=== PATIENT | male | born 1985 | race Caucasian/White ===

== ENCOUNTER 2017-02-16 07:36 | Emergency (ER) | payer MEDICAID, OTHER ==
[~2017-02-16] VITALS: Ht 170.2 cm; Wt 125.0 kg
[~2017-02-16 07:36] MED LIST: BACTDS PO; CLOT24CR4 TOP; FLUC150T41 PO; IBUP800T25 PO; TRAM50TA2 PO
[2017-02-16 07:39] VITALS: Ht 170.2 cm; Wt 125.0 kg
[2017-02-16] MEDS ORDERED: ONDANSETRON 4 MG INJ IV STA (07:48)
[2017-02-16] MEDS ORDERED: HYDROmorphONE 1 MG/ML SYG IV STA (07:48)
[2017-02-16] MEDS ORDERED: SOD CHLORIDE 0.9% 1,000 ML IV STA (07:48)
[2017-02-16] MEDS ORDERED: KETOROLAC 60 MG INJ IM STA (07:58)
[2017-02-16 08:11] LABS: BASOPHIL # 0.1 10^3/ul (0.0-0.1); BASOPHILS % 0.6 % (0.0-2.0); EOSINOPHILS # 0.2 10^3/ul (0.0-0.5); EOSINOPHILS % 1.8 % (0.0-7.0); HEMATOCRIT 43.6 % (42.0-52.0); HEMOGLOBIN 15.7 g/dl (14.0-18.0); LYMPHOCYTES # 4.1 10^3/ul (0.8-2.9); MEAN CORPUSCULAR VOLUME 83.2 fl (82.0-101.0); MEAN PLATELET VOLUME 9.8 fl (7.4-10.4); MONOCYTES % 9.2 % (0.0-11.0); NEUTROPHIL # 5.4 10^3/ul (1.6-7.5); NEUTROPHILS % 50.1 % (39.0-77.0); PLATELET COUNT 273 10^3/UL (140-415); RED BLOOD COUNT 5.24 10^6/ul (4.70-6.10); RED CELL DISTRIBUTION WIDTH 12.4 % (11.5-14.5); WHITE BLOOD COUNT 10.9 10^3/ul (4.8-10.8)
[2017-02-16 08:36] LABS: ALBUMIN 4.4 g/dl (3.3-4.9); ALBUMIN/GLOBULIN RATIO 1.1; BILIRUBIN,INDIRECT 0.6 mg/dl (0-1.1); BILIRUBIN,TOTAL 0.6 mg/dl (0.2-1.3); CALCIUM 9.6 mg/dl (8.4-10.2); CREATININE 0.84 mg/dl (0.61-1.24); POTASSIUM 4.1 mmol/L (3.5-5.1); TOTAL PROTEIN 8.4 g/dl (6.1-8.1)
--- NOTE | 2017-02-16 08:50 | RADRPT ---
PROCEDURE: CT Abdomen and Pelvis without intravenous contrast. CLINICAL INDICATION: Abdominal pain . TECHNIQUE: CT scan of the abdomen and pelvis without intravenous contrast was performed on a multi -slice CT scanner. Coronal and sagittal reformatted images were obtained from the axial source image s. Images were reviewed on a high-resolution PACS workstation. Total DLP = 1404 mGy-cm. CTDIvol = 21.5 mGy. One or more of the following dose reduction techniques were used: Automated exposure control. Adjustment of the mA and/or kV according to patient size. Use of iterative reconstruction technique. COMPARISON: None. FINDINGS: CT abdomen and pelvis: The lung bases are clear. The heart size is normal in size. The liver is normal in size and diffus tanya fatty in density without focal mass or intrahepatic biliary dilatation. The spleen is normal in size and homogeneous in density. The pancreas as visualized is normal. The gallbladder shows no evidence of stones or distension . The adrenal glands are normal. The kidneys are symmetric in si ze. 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 There is a 2 mm stone in the left proximal ureter to the lower rc e moiety with mild left hydronephrosis. The right kidney appears unremarkable.. The stomach is partially collapsed, but is grossly unremarkable. The small bowels are unremarkable. The colon and rectum are normal. There is no evidence of appendicitis or diverticulitis. The pelvi c organs are normal. The bladder is normal. There is no abdominal or pelvic adenopathy, free fluid, free air, mass or mesenteric inflammation. The aorta is normal in caliber and course. The osseous structures are intact. No osteolytic or osteo blastic lesions are identified. The soft tissues are within normal limits. Lack of IV and oral con trast limits sensitivity of exam. IMPRESSION: 1. 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 2. Severe hepatic steatosis. RPTAT: HJPL .Lobito Saavedra MD, Date Time Electronically viewed and signed by .Lobito Saavedra MD, on 02/16/2017 08:49 .L/
[2017-02-16 09:39] LABS: ADD UMIC YES; UR ASCORBIC ACID NEGATIVE (NEGATIVE); UR BILIRUBIN (Dip) NEGATIVE (NEGATIVE); UR BLOOD (Dip) 3+ mg/dL (NEGATIVE); UR CLARITY CLEAR (CLEAR); UR COLOR YELLOW (YELLOW); UR GLUCOSE (Dip) NEGATIVE (NEGATIVE); UR KETONES (Dip) TRACE mg/dL (NEGATIVE); UR LEUKOCYTE ESTERASE (Dip) NEGATIVE Leu/ul (NEGATIVE); UR MUCUS FEW /HPF (NONE SEEN); UR NITRITE (Dip) NEGATIVE (NEGATIVE); UR RBC 56 /HPF (0-5); UR SPECIFIC GRAVITY (Dip) 1.015 (1.003-1.030); UR TOTAL PROTEIN (Dip) NEGATIVE (NEGATIVE); UR UROBILINOGEN (Dip) NEGATIVE (NEGATIVE)
[2017-02-16] MEDS ORDERED: HYDR-906 PO (09:44)
[2017-02-16] MEDS ORDERED: TAMS-14 PO (09:44)
--- NOTE | 2017-02-16 10:13 | ERD ---
ER Documentation Chief Complaint Date/Time DATE: 02/16/17 TIME: 10:07 Chief Complaint HPI 31-year-old male complaining of left flank pain 1 day. Last bowel movement was earlier today and was normal. Denies taking medication for pain control. Denies vomiting. Has never had pain like this before. States it is a cramping sharp pain in the left flank. Denies chest pain or shortness of breath. Medical problems: Hernia. ROS All systems reviewed and are negative except as per history of present illness. Medications Home Meds Active Scripts Tamsulosin Hcl* (Flomax*) 0.4 Mg Cap.er.24h, 0.4 MG PO BID, #30 CAP Prov:BLAS GUAMAN PA-C 02/16/17 Hydrocodone/Acetaminophen ([place] 5-325 Tablet) 1 Each Tablet, 1 TAB PO Q6H Y for PAIN, #7 TAB Prov:BLAS GUAMAN PA-C 02/16/17 Fluconazole* (Fluconazole*) 150 Mg Tablet, 150 MG PO DAILY for 1 Day, TAB Prov:JACKY JI MD 06/15/15 Tramadol HCl (Tramadol HCl) 50 Mg Tablet, 50 MG PO Q4 Y for PAIN, #20 TAB Prov:JACKY JI MD 06/15/15 Clotrimazole* (Lotrimin* AF) 1% - 24 Gm Cream.gm., 1 APPLIC TOP BID for 14 Days , TUB Prov:JACKY JI MD 06/15/15 Sulfamethoxazole-Trimethoprim* (Bactrim* DS) 800-160 Mg Tab, 1 TAB PO BID for 7 Days, TAB Prov:JACKY JI MD 06/15/15 Ibuprofen* (Motrin*) 800 Mg Tab, 800 MG PO Q6H Y for PAIN AND OR ELEVATED TEMP, #30 TAB Prov:ROMEO VELARDE NP 05/21/15 Allergies Allergies: Coded Allergies: No Known Allergy (Unverified , 05/21/15) PMhx/Soc History of Surgery: No Anesthesia Reaction: No Hx Neurological Disorder: No Hx Respiratory Disorders: No Hx Cardiac Disorders: No Hx Psychiatric Problems: No Hx Miscellaneous Medical Probl: No Hx Alcohol Use: No Hx Substance Use: No Hx Tobacco Use: No Physical Exam Vitals Vital Signs Date Time Temp Pulse Resp B/P Pulse Ox O2 Delivery O2 Flow Rate FiO2 02/16/17 07:39 98.6 72 20 125/86 98 Physical Exam GENERAL: The patient is well-appearing, well-nourished, in no acute distress CHEST: Clear to auscultation bilaterally. There are no rales, wheezes or rhonchi. HEART: Regular rate and rhythm. No murmurs, clicks, rubs or gallops. No S3 or S4. ABDOMEN:Soft, nondistended. Tender to palpation of her right flank good bowel sounds. No rebound or guarding. No gross peritonitis. No gross organomegaly or masses. No Arnold sign or McBurney point tenderness. BACK: No midline or flank tenderness. Result Diagram: 02/16/1780102/16/17 0802 Results 24 hrs Laboratory Tests Test 02/16/17 08:02 02/16/17 09:17 White Blood Count 10.910^3/ul Red Blood Count 5.2410^6/ul Hemoglobin 15.7g/dl Hematocrit 43.6% Mean Corpuscular Volume 83.2fl Mean Corpuscular Hemoglobin 30.0pg Mean Corpuscular Hemoglobin Concent 36.0g/dl Red Cell Distribution Width 12.4% Platelet Count 06377^3/UL Mean Platelet Volume 9.8fl Neutrophils % 50.1% Lymphocytes % 38.0% Monocytes % 9.2% Eosinophils % 1.8% Basophils % 0.6% Nucleated Red Blood Cells % 0.0/100WBC Neutrophils # 5.410^3/ul Lymphocytes # 4.110^3/ul Monocytes # 1.010^3/ul Eosinophils # 0.210^3/ul Basophils # 0.110^3/ul Nucleated Red Blood Cells # 0.010^3/ul Sodium Level 141mmol/L Potassium Level 4.1mmol/L Chloride Level 106mmol/L Carbon Dioxide Level 23mmol/L Anion Gap 16 Blood Urea Nitrogen 11mg/dl Creatinine 0.84mg/dl Glucose Level 133mg/dl Calcium Level 9.6mg/dl Total Bilirubin 0.6mg/dl Direct Bilirubin 0.00mg/dl Indirect Bilirubin 0.6mg/dl Aspartate Amino Transf (AST/SGOT) 86IU/L Alanine Aminotransferase (ALT/SGPT) 121IU/L Alkaline Phosphatase 107IU/L Total Protein 8.4g/dl Albumin 4.4g/dl Globulin 4.00g/dl Albumin/Globulin Ratio 1.10 Lipase 108U/L Urine Color YELLOW Urine Clarity CLEAR Urine pH 5.0 Urine Specific [place] 1.015 Urine Ketones TRACEmg/dL Urine Nitrite NEGATIVEmg/dL Urine Bilirubin NEGATIVEmg/dL Urine Urobilinogen NEGATIVEmg/dL Urine Leukocyte Esterase NEGATIVELeu/ul Urine Microscopic RBC 56/HPF Urine Microscopic WBC 2/HPF Urine Mucus FEW/HPF Urine Hemoglobin 3+mg/dL Urine Glucose NEGATIVEmg/dL Urine Total Protein NEGATIVEmg/dl Current Medications Medications (Trade) Dose Ordered Sig/Demi Route PRN Reason Start Time Stop Time Status Last Admin Dose Admin Sodium Chloride (NS) 1,000 ml @ 1,000 mls/hr Q1H STAT IV 02/16/17 07:48 02/16/17 08:47 DC 02/16/17 08:07 Hydromorphone HCl (Dilaudid) 1 mg ONCE STAT IV 02/16/17 07:48 02/16/17 07:49 DC 02/16/17 08:07 Ondansetron HCl (Zofran Inj) 4 mg ONCE STAT IV 02/16/17 07:48 02/16/17 07:49 DC 02/16/17 08:07 Ketorolac Tromethamine (Toradol) 60 mg ONCE STAT IM 02/16/17 07:58 02/16/17 07:59 DC 02/16/17 08:11 Procedures/MDM DIAGNOSTIC IMAGING REPORT Patient: FAITH MCGRATH : 1985 Age: 31 Sex: M MR #: [id number] DOS: 02/16/17 0748 Ordering MD: TU GUAMAN PA-C Location: [facility] Room/Bed: PROCEDURE: CT Abdomen and Pelvis without intravenous contrast. CLINICAL INDICATION: Abdominal pain . TECHNIQUE: CT scan of the abdomen and pelvis without intravenous contrast was performed on a multi-slice CT scanner. Coronal and sagittal reformatted images were obtained from the axial source images. Images were reviewed on a high- resolution PACS workstation. Total DLP = 1404 mGy-cm. CTDIvol = 21.5 mGy. One or more of the following dose reduction techniques were used: Automated exposure control. Adjustment of the mA and/or kV according to patient size. Use of iterative reconstruction technique. COMPARISON: None. FINDINGS: CT abdomen and pelvis: The lung bases are clear. The heart size is normal in size. The liver is normal in size and diffusely fatty in density without focal mass or intrahepatic biliary dilatation. The spleen is normal in size and homogeneous in density. The pancreas as visualized is normal. The gallbladder shows no evidence of stones or distension . The adrenal glands are normal. The kidneys are symmetric in size. 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 There is a 2 mm stone in the left proximal ureter to the lower pole moiety with mild left hydronephrosis. The right kidney appears unremarkable.. The stomach is partially collapsed, but is grossly unremarkable. The small bowels are unremarkable. The colon and rectum are normal. There is no evidence of appendicitis or diverticulitis. The pelvic organs are normal. The bladder is normal. There is no abdominal or pelvic adenopathy, free fluid, free air, mass or mesenteric inflammation. The aorta is normal in caliber and course. The osseous structures are intact. No osteolytic or osteoblastic lesions are identified. The soft tissues are within normal limits. Lack of IV and oral contrast limits sensitivity of exam. IMPRESSION: 1. 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 2. Severe hepatic steatosis. Er Course: Dilaudid and Toradol given in ED. Pain well controlled. MDM: 31-year-old male coming in complaining of left leg pain. Patient's CT scan shows a stone. I have low suspicion for pyelonephritis or septic stone. Patient's urine does not appear to be infected the patient's vital signs are stable. I have low suspicion for bowel obstruction or other abdominal emergencies as patient's CT scan is within normal limits and patient's pain is well controlled with medication. Patient's initial exam was concerning for kidney stone which was confirmed with CT scan. Patient will be discharged with pain medication and recommendation to increase fluid levels. All other questions answered at discharge. Patient is told to follow-up with primary care within 1-2 days for close evaluation return to the ER symptoms change or worsen. Departure Diagnosis: Primary Impression: Kidney stone Condition: Stable Patient Instructions: Kidney Stone W/ Colic Referrals: COMMUNITY CLINICS YOU HAVE RECEIVED A MEDICAL SCREENING EXAM AND THE RESULTS INDICATE THAT YOU DO NOT HAVE A CONDITION THAT REQUIRES URGENT TREATMENT IN THE EMERGENCY DEPARTMENT. FURTHER EVALUATION AND TREATMENT OF YOUR CONDITION CAN WAIT UNTIL YOU ARE SEEN IN YOUR DOCTORS OFFICE WITHIN THE NEXT 1-2 DAYS. IT IS YOUR RESPONSIBILITY TO MAKE AN APPOINTMENT FOR FOLOW-UP CARE. IF YOU HAVE A PRIMARY DOCTOR --you should call your primary doctor and schedule an appointment IF YOU DO NOT HAVE A PRIMARY DOCTOR YOU CAN CALL OUR PHYSICIAN REFERRAL HOTLINE AT IF YOU CAN NOT AFFORD TO SEE A PHYSICIAN YOU CAN CHOSE FROM THE FOLLOWING [facility] [address] [facility] [facility] [address] [facility] [facility] [address] [facility] [facility] [address] [facility]. [facility] [address] [facility]. [facility] [address] Additional Instructions: FOLLOW UP WITH YOUR PRIMARY CARE PHYSICIAN TOMORROW.Return to this facility if you are not improving as expected. BLAS GUAMAN PA-C Feb 16, 2017 10:13
== END 2017-02-16 09:57 | disposition home or self-care (01) ==
LOC: FTE 07:36
DX: N20.0 Calculus of kidney (principal)
CPT/HCPCS: 36415; 74176; 80053; 81001; 83690; 85025; 96372; 96374; 96375; J1170; J1885; J2405; J7030; Z7502